=== PATIENT | male | born 1940 | race Caucasian/White ===

== ENCOUNTER 2020-02-02 07:27 | Emergency (ER) | payer MEDICARE ==
[~2020-02-02] VITALS: Ht 185.4 cm; Wt 68.4 kg
[~2020-02-02 07:27] MED LIST: ACET325T9 PO; ALLO100T PO; AMIN30LI2 PO; ATOR20TA58 PO; DEXT4TAB PO; DOCU100C28 PO; INSU100V5 IJ; IPRA0.2S5 IH; METO25TA4 PO; MICO30CR11 TP; PANT40TA6 PO; QUET25TA5 PO; RIVA10TA PO; SERT25TA PO; SERT50TA PO
[2020-02-02 07:28] VITALS: BP 132/114
--- NOTE | 2020-02-02 08:03 | PHYS DOC ---
Past History Past Medical History: CAD, CHF, Dementia, Depression, GERD, Hypertension, Schizophrenia Past Surgical History: Other Alcohol Use: None Drug Use: None Adult General Chief Complaint Chief Complaint: BLOOD IN URINE [facility] Patient is a 79-year-old male who presents to the emergency room with painless hematuria that he has had for "a while". Patient states he is not sure why the rehab facility sent him here. He states that this has been an ongoing issue for him. He has not followed up with anybody. Does not have any pain. He does not have any difficulty urinating. He denies any fevers. He does not have any urinary frequency urgency. Review of Systems Review of Systems Complete ROS is negative unless otherwise documented in [facility] Allergies Allergies Allergies Coded Allergies Type Severity Reaction Last Updated Verified No Known Drug Allergies 01/26/14 No Physical Exam Physical Exam General: Awake, alert, NAD. Well Nourished, well hydrated. Cooperative HEENT: Atraumatic, EOMI, PERRL, airway patent, moist oral mucosa Neck: Supple, trachea midline Respiratory: CTA bilaterally, normal effort, no wheezing/crackles CV: RRR, no murmur, cap refill <2 GI: Soft, nondistended, nontender, no masses MSK: No obvious deformities Skin: Warm, dry, intact Neuro: A&O x3, speech NL, sensory and motor grossly intact, no focal deficits Psych: Normal affect, normal mood, not suicidal or homicidal Current Patient Data Vital Signs Vital Signs Date Time Temp Pulse Resp B/P (MAP) Pulse Ox O2 Delivery O2 Flow Rate FiO2 02/02/20 07:28 97.8 59 16 132/114 (120) 97 Room Air EKG EKG [] Radiology/Procedures Radiology/Procedures [] Heart Score Risk Factors: Risk Factors: DM, Current or recent (<one month) smoker, HTN, HLP, family history of CAD, obesity. Risk Scores: Risk Factors: DM, Current or recent (<one month) smoker, HTN, HLP, family history of CAD, obesity. Course & Med Decision Making Course & Med Decision Making Pertinent Labs and Imaging studies reviewed. (See chart for details) Patient is a 79-year-old male who presents to the emergency room with painless hematuria. Patient generally appears well. This appears to be a chronic problem. UA and basic labs are done to rule out obvious causes of hematuria. Lab work is normal. Patient does not have any clotting that would suggest obstruction. He has a long history of this. No need for emergent evaluation at this time. Patient's test results and vitals while in the ED were fully reviewed and discussed with the patient. Patient is stable and at this time does not need admission to the hospital. We have discussed strict return precautions and the importance of following up with their Primary Care Physician. Patient stated understanding and was given an opportunity to ask any questions. Patient is in agreement with plan. Dragon Disclaimer Dragon Disclaimer This electronic medical record was generated, in whole or in part, using a voice recognition dictation system. Departure Departure: Impression: Primary Impression: Hematuria Disposition: 01 DC HOME SELF CARE/HOMELESS Condition: STABLE Referrals: HERI THURMAN MD (PCP) Patient Instructions: Hematuria, Adult JACOB SANCHEZ MD Feb 02, 2020 08:03
[2020-02-02 08:14] LABS: BASO % 1 % (0-3); EOS # 0.1 x10^3/uL (0.0-0.7); EOS % 4 % (0-3); HEMATOCRIT 39.8 % (39.0-53.0); LYMPH # 1.2 x10^3/uL (1.0-4.8); LYMPH % 33 % (24-48); MEAN CORPUSCULAR HEMOGLOBIN 32 pg (25-35); MEAN CORPUSCULAR HGB CONC 33 g/dL (31-37); MEAN CORPUSCULAR VOLUME 99 fL (79-100); MONO # 0.3 x10^3/uL (0.0-1.1); MONO % 8 % (0-9); NEUT % 55 % (31-73); PLATELET COUNT 131 x10^3/uL (140-400); RED BLOOD COUNT 4.03 x10^6/uL (4.30-5.70); RED CELL DISTRIBUTION WIDTH 14.3 % (11.5-14.5); WHITE BLOOD COUNT 3.7 x10^3/uL (4.0-11.0)
[2020-02-02 08:23] LABS: CREATININE 1.3 mg/dL (0.7-1.3); GFR 53.4; POTASSIUM 3.5 mmol/L (3.5-5.1)
[2020-02-02 09:29] LABS: CLARITY,URINE TURBID; COLOR,URINE BROWN
[2020-02-02 09:30] LABS: BACTERIA,URINE 0 /HPF (0-FEW); RBC,URINE >40 /HPF (0-2); SQUAMOUS EPITHELIAL CELL,UR FEW /LPF; YEAST,URINE PRESENT /HPF
[2020-02-02] MEDS ORDERED: FLUCONAZOLE 100 MG TABLET. PO ONE (10:00)
== END 2020-02-02 11:16 | disposition home or self-care (01) ==
LOC: ER 07:27
DX: R31.9 Hematuria, unspecified (principal); I25.10 Atherosclerotic heart disease of native coronary artery without angina pectoris; I11.0 Hypertensive heart disease with heart failure; I50.9 Heart failure, unspecified; F03.90 Unspecified dementia, unspecified severity, without behavioral disturbance, psychotic disturbance, mood disturbance, and anxiety; F32.9 Major depressive disorder, single episode, unspecified; K21.9 Gastro-esophageal reflux disease without esophagitis; F20.9 Schizophrenia, unspecified
CPT/HCPCS: 36415; 80048; 81001; 85025; 99283

== ENCOUNTER 2020-02-10 18:07 | Inpatient (IN) | payer MEDICARE ==
[~2020-02-10] VITALS: Ht 185.4 cm; Wt 69.0 kg
--- NOTE | 2020-02-10 18:13 | PHYS DOC ---
Past History Past Medical History: Arthritis, CAD, CHF, Dementia, Depression, GERD, Hypertension, Schizophrenia Past Surgical History: Other Alcohol Use: None Drug Use: None General Adult EDM: Chief Complaint: WEAKNESS/GENERALIZED HPI: HPI: ".. I don't know... just tired...".."Short of breath..." .."Cough.." Patient is a 79 year old male who presents with above hx and complaints of cough, dyspnea, weakness, fever, and Hx. COVID +exposure. Pt. followed with Dr. Ontiveros primary at [facility]. Pt. has seen Dr. Thurman in past. The pt. a resident of [facility]. since 02-23-2013. Patient past history of schizophrenia, diastolic congestive heart failure, osteoarthritis, chronic pain, major depression, deconditioning, arteriosclerotic disease, angina, GERD, hyperlipidemia, hemorrhoids, abdomen hernia without obstruction, dementia, behavioral disturbance, No recent travel. History of contact with other patients that are Covid positive at the retirement. Patient is DNR. Review of Systems: Review of Systems: Patient very poor historian Constitutional: History of fever or chills Eyes: Denies change in visual acuity HENT: Denies nasal congestion or sore throat Respiratory: Hx. shortness of breath Cardiovascular: Denies chest pain or edema GI: Denies abdominal pain, nausea, vomiting, bloody stools or diarrhea : Denies dysuria Musculoskeletal: Denies back pain or joint pain Integument: Denies rash Neurologic: Denies headache, focal weakness or sensory changes Endocrine: Denies polyuria or polydipsia Lymphatic: Denies swollen glands Psychiatric: Hx depression or anxiety Family History: Family History: Not currently available Current Medications: Current Meds: See nursing for home meds Allergies: Allergies: Allergies Coded Allergies Type Severity Reaction Last Updated Verified No Known Drug Allergies 01/26/14 No Physical Exam: PE: Constitutional: Moderate respiratory distress, chronically ill and appearance. [] HENT: Normocephalic, atraumatic, bilateral external ears normal, oropharynx moist, no oral exudates, nose swollen turbinates Eyes: PERRLA, EOMI, conjunctiva normal, no discharge. [] Neck: Normal range of motion, no tenderness, supple, no stridor. [] Cardiovascular: Tachycardia heart rate regular rhythm, PMI to the left Lungs & Thorax: Bilateral breath sounds equal apex with scattered wheezes, basilar rhonchi and crackles on auscultation [] Abdomen: Bowel sounds normal, soft, no tenderness, no masses, no pulsatile masses. Mild distention Skin: Warm, dry, no erythema, no rash. Poor turgor Back: No tenderness, no CVA tenderness. [] Extremities: No tenderness, no cyanosis, no clubbing, moves extremities on reque st, no edema. Arthritic changes. No cording noted Neurologic: Alert to name, moves all extremities on request has distal sensory, Psychologic: Affect anxious, judgement impaired, mood depressed. EKG: EKG: My interpretation EKG shows a sinus tachycardia at 117 bpm. No findings acute STEMI or contralateral changes. Some baseline artifact from tremor [] Radiology/Procedures: Radiology/Procedures: [][address] [address] IMAGING REPORT Signed PATIENT: DANIE KUMAR LACCOUNT: [id number] : 1940 LOCATION: ER AGE: 79 SEX: M EXAM STATUS: REG ER ORD. PHYSICIAN: GUILLE ANDRADE MD REASON: dyspnea, cough, fever, + COVID PROCEDURE: CHEST AP ONLY AP chest. HISTORY: Dyspnea, cough, fever, Covid-19 positive AP view was taken of the chest. Left lung is clear. Heart is normal in size. The aorta is tortuous. There are right lower lobe infiltrates. IMPRESSION: 1. Right lower lobe infiltrates. Electronically signed by: Emeka Hawley MD (02/10/2020 6:28 PM) [facility] DICTATED AND SIGNED BY: EMEKA HAWLEY MD DATE: 02/10/20 182 CC: HERI THURMAN MD; GUILLE ANDRADE MD ~MTH0 0 Heart Score: HEART Score for Chest Pain: HEART Score for Chest Pain Response (Comments) Value History Slighlty/Non-Suspicious 0 ECG Nonspecific Repolarizatio 1 Age > 65 2 Risk Factors 1 or 2 Risk Factors 1 Troponin < Normal Limit 0 Total 4 Risk Factors: Risk Factors: DM, Current or recent (<one month) smoker, HTN, HLP, family history of CAD, obesity. Risk Scores: Score 0 - 3: 2.5% MACE over next 6 weeks - Discharge Home Score 4 - 6: 20.3% MACE over next 6 weeks - Admit for Clinical Observation Score 7 - 10: 72.7% MACE over next 6 weeks - Early Invasive Strategies Course & Med Decision Making: Course & Med Decision Making Pertinent Labs and Imaging studies reviewed. (See chart for details) No answer at Dr. Thurman. Discussed presentation, testing and tx. plan with Dr. Ramos, advised admit to med floor. Continue DNR status, continue Zithromax and Rocephin. Impression; 1. Pneumonia- atypical Rt. Lower 2. Hx. COVID + 02/02/2020 3. Renal insufficiency BUN 33/1.3 Creat 4. Thrombocytopenia 89 5. Elevated CRP- 107.1 6. Hx UTI and Hematuria 7. Elevated PTT ( on Eliquis 5mg bid) 8. Hx. Schizophrenia 9. DNR- Comfort care [] Santa Disclaimer: Santa Disclaimer: This electronic medical record was generated, in whole or in part, using a voice recognition dictation system. Departure Departure: Referrals: HERI THURMAN MD (PCP) Santa Disclaimer This chart was dictated in whole or in part using Voice Recognition software in a busy, high-work load, and often noisy Emergency Department environment. It may contain unintended and wholly unrecognized errors or omissions. GUILLE ANDRADE MD Feb 10, 2020 18:13
[2020-02-10] MEDS ORDERED: IV RINGERS SOLUTION,LACTATED 1,000 ML IV SCH (18:30)
[2020-02-10] MEDS ORDERED: ALBUTEROL SULFATE 8GM INHALER. INH ONE (18:30)
--- NOTE | 2020-02-10 18:30 | RAD ---
AP chest. HISTORY: Dyspnea, cough, fever, Covid-19 positive AP view was taken of the chest. Left lung is clear. Heart is normal in size. The aorta is tortuous. T here are right lower lobe infiltrates. IMPRESSION: 1. Right lower lobe infiltrates. Electronically signed by: Emeka Hawley MD (02/10/2020 6:28 PM) [facility]
[2020-02-10 19:31] LABS: BASO % 0 % (0-3); EOS % 0 % (0-3); HEMATOCRIT 41.9 % (39.0-53.0); LYMPH # 0.3 x10^3/uL (1.0-4.8); LYMPH % 4 % (24-48); MEAN CORPUSCULAR HEMOGLOBIN 32 pg (25-35); MEAN CORPUSCULAR HGB CONC 34 g/dL (31-37); MEAN CORPUSCULAR VOLUME 96 fL (79-100); MONO # 0.6 x10^3/uL (0.0-1.1); MONO % 6 % (0-9); NEUT # 8.6 x10^3uL (1.8-7.7); NEUT % 90 % (31-73); PLATELET COUNT 89 x10^3/uL (140-400); RED BLOOD COUNT 4.34 x10^6/uL (4.30-5.70); RED CELL DISTRIBUTION WIDTH 14.3 % (11.5-14.5); WHITE BLOOD COUNT 9.5 x10^3/uL (4.0-11.0)
[2020-02-10 19:41] LABS: CALCIUM 9.2 mg/dL (8.5-10.1); CREATININE 1.3 mg/dL (0.7-1.3); GFR 53.4; POTASSIUM 4.1 mmol/L (3.5-5.1)
[2020-02-10 19:54] LABS: ALBUMIN 3.5 g/dL (3.4-5.0); C REACTIVE PROTEIN 107.1 mg/L (0-3.3); DIRECT BILIRUBIN 0.4 mg/dL (0.0-0.2); MAGNESIUM 1.8 mg/dL (1.8-2.4); TOTAL BILIRUBIN 0.7 mg/dL (0.2-1.0); TOTAL PROTEIN 7.2 g/dL (6.4-8.2)
--- NOTE | 2020-02-10 21:40 | EKG ---
[address] [address] Test Date: 2020-02-10 Test Time: 18:54:39 Pat Name: DANIE KUMAR Department: Room: Gender: M Library Historian: : 1940 Requested By: GUILLE ANDRADE Order Number: [id number] Reading MD: Measurements Intervals [place] Rate: 117 P: 231 NC: 134 QRS: 41 QRSD: 78 T: 58 QT: 286 QTc: 403 Interpretive Statements SINUS TACHYCARDIA OTHERWISE NORMAL ECG RI6.02 No previous ECG available for comparison
[2020-02-10] MEDS ORDERED: AZITHROMYCIN 250 MG TABLET. PO ONE (22:30)
[2020-02-10] MEDS ORDERED: cefTRIAXone SODIUM 1 GM VIAL ONE (23:22)
[2020-02-10] MEDS ORDERED: IV NORMAL SALINE 50ML 50 ML ONE (23:22)
[2020-02-10] MEDS ORDERED: ACETAMINOPHEN 325 MG TABLET PO PRN (23:30)
[2020-02-10] MEDS ORDERED: ONDANSETRON PF 4 MG/2 ML VIAL. IVP PRN (23:30)
[2020-02-11 01:08] LABS: INFLUENZA A PATIENT NEGATIVE (NEGATIVE); INFLUENZA B PATIENT NEGATIVE (NEGATIVE)
[2020-02-11 02:12] VITALS: BP 112/63
--- NOTE | 2020-02-11 03:49 | NUR ---
Pt admitted to 125 via EMS accompanied by Nursing Land Sales Agent. Pt was assisted from gurney to bed w/ help of staff. Pt was orientated to self only. VS obtained. Pt denied any pain during assessment. Pt was calm and cooperative but confused. Bed alarm set. Will continue to monitor.
[2020-02-11 06:06] VITALS: BP 93/63
[2020-02-11 06:41] LABS: BASO % 0 % (0-3); EOS % 0 % (0-3); HEMOGLOBIN 12.1 g/dL (13.0-17.5); LYMPH # 0.5 x10^3/uL (1.0-4.8); LYMPH % 4 % (24-48); MEAN CORPUSCULAR HEMOGLOBIN 32 pg (25-35); MEAN CORPUSCULAR HGB CONC 33 g/dL (31-37); MEAN CORPUSCULAR VOLUME 97 fL (79-100); MONO # 0.8 x10^3/uL (0.0-1.1); MONO % 6 % (0-9); NEUT # 10.8 x10^3uL (1.8-7.7); NEUT % 89 % (31-73); PLATELET COUNT 79 x10^3/uL (140-400); RED BLOOD COUNT 3.83 x10^6/uL (4.30-5.70); RED CELL DISTRIBUTION WIDTH 14.2 % (11.5-14.5); WHITE BLOOD COUNT 12.1 x10^3/uL (4.0-11.0)
[2020-02-11 06:54] LABS: CALCIUM 8.6 mg/dL (8.5-10.1); CREATININE 1.2 mg/dL (0.7-1.3); GFR 58.6; POTASSIUM 3.6 mmol/L (3.5-5.1)
[2020-02-11] MEDS ORDERED: DEXTROSE 4 GM PO PRN (08:00)
[2020-02-11] MEDS ORDERED: [UNRECOGNIZED DRUG - OTHER] PO PRN (08:00)
[2020-02-11] MEDS ORDERED: IPRATROPIUM BROMIDE 0.5 MG/2.5 ML NEBU. IH PRN (08:00)
[2020-02-11] MEDS ORDERED: SERTRALINE 25 MG TABLET. PO SCH (09:00)
[2020-02-11] MEDS ORDERED: NON FORMULARY ITEM (Amino Acids/Protein Hydrolys (Pro-Stat Liquid) 30 ML) PO SCH (09:00)
[2020-02-11] MEDS: MICONAZOLE NITRATE 2% TOPICAL CREAM 28GM TUBE. TP SCH ×2 (09:00→21:00)
[2020-02-11] MEDS ORDERED: ALBUTEROL SULFATE 8GM INHALER. INH SCH (09:00)
[2020-02-11] MEDS: AZITHROMYCIN 250 MG TABLET. PO SCH (09:05)
[2020-02-11] MEDS: METOPROLOL TART IMMED RELEASE 25 MG TABLET. PO SCH ×2 (09:05→20:38)
[2020-02-11] MEDS: ALLOPURINOL 100 MG TABLET. PO SCH ×2 (09:05→20:40)
[2020-02-11] MEDS: DOCUSATE SODIUM 100 MG CAPSULE PO SCH ×2 (09:05→20:40)
[2020-02-11 11:10] VITALS: BP 96/60
[2020-02-11] MEDS ORDERED: IPRATRPIUM/ALBUTEROL 0.5/2.5MG 3 ML NEBU. IH SCH (12:00)
[2020-02-11] MEDS: SERTRALINE 50 MG TABLET. PO SCH (13:54)
[2020-02-11] MEDS: ACETAMINOPHEN 325 MG TABLET PO PRN (13:54)
[2020-02-11] MEDS: PANTOPRAZOLE 40 MG TABLET. PO SCH (13:54)
[2020-02-11] MEDS: DEXAMETHASONE 4 MG TABLET PO SCH (13:54)
[2020-02-11] MEDS: IPRATROPIUM/ALBUTEROL 20/100mcg/INH INHALER. INH SCH ×3 (13:55→20:00)
[2020-02-11] MEDS ORDERED: VANCOMYCIN 1.75 GM in IV NORMAL SALINE 500ML 500 ML IV ONE (14:00)
[2020-02-11] MEDS: IV 1/2 NORMAL SALINE 1,000 ML IV SCH (14:10)
[2020-02-11 14:32] LABS: % BANDS 19 % (0-9); % LYMPHS 11 % (24-48); % MONOS 4 % (0-10); % MYELOS 1 % (0-0); % SEGS 65 % (35-66)
[2020-02-11 14:33] LABS: PLT ESTIMATE DECREASED (ADEQUATE); TOXIC GRANULATION SLIGHT
[2020-02-11 15:00] VITALS: BP 101/65
--- NOTE | 2020-02-11 16:56 | NUR ---
Pharmacy Vancomycin Dosing Note S:Consulted to monitor and dose vancomycin started . O:DANIE KUMAR is a 79 year old M with Pneumonia, bacteremia Height: 6 feet, 1 inches Weight: 66.2 kg [place] Body Weight: 79.90 Adjusted Body Weight: 74.34 Dosing Weight: Actual Other Antibiotics: ZOSYN 4.5GRAM Q6HRS LABS: Last BUN: 31 Last Creatinine: 1.2 Creatinine Clearance: Last WBC: 12.1 Last Procalcitonin: Tmax (past 24 hours): Microbiology: I/O: Drug Levels: Last level: on at Last dose given 02/11/20 at 1400 Vancomycin Dosing: Loading Dose: 1750 mg x1 Dosing Weight: Actual Target Trough: 15-20 A: Based on: P: 1. Begin Vancomycin 1000 mg IV q24h 2. Follow up Trough level on 02/13/20 at 1330 3. Pharmacy will continue to monitor, follow and adjust therapy as needed. SWETHA TURCIOS, [facility], 02/11/20 [id number]
[2020-02-11] MEDS ORDERED: VANCOMYCIN PER PHARMACY MC PRN (17:00)
[2020-02-11] MEDS ORDERED: DEXTROSE 50% 25 GM / 50ML DISP.SYRIN. IV PRN (17:15)
[2020-02-11] MEDS: PIPERACILLIN/TAZOBACTAM 4.5 GM in IV NORMAL SALINE 50ML 50 ML IV SCH (17:29)
--- NOTE | 2020-02-11 20:08 | HP ---
ADMIT DATE: 02/10/2020 HISTORY OF PRESENT ILLNESS: A 79-year-old patient came in through the Emergency Room with complaints of severe cough, weakness, dizziness, lightheadedness. The patient is a resident at a nursing facility in [facility] since 2013. The patient came in; he was found to have bacteremia, gram-negative, and placed on status of antibiotics that are appropriate for this to cover since he is coming from a nursing facility. COVID-19 was pending, although COVID-19 was noted at that nursing facility. The patient has had a history of a stroke and cannot really give much of a history. PAST MEDICAL HISTORY: Schizophrenia, diastolic congestive heart failure, osteoarthritis, chronic pain, major depression, deconditioning, atherosclerosis disease and angina, GERD, hyperlipidemia, hemorrhoids, ectopy, abdominal hernia with obstruction, dementia, behavioral problems, anxiety, previous history of pneumonia. FAMILY HISTORY: Positive for heart disease. ALLERGIES: No known allergies. SOCIAL HISTORY: The patient has about 40-50 pack year history of smoking, although he has not smoked in some time. He is a DNR. HOME MEDICATIONS: As listed in the reconciliation area includes: Xarelto 20 mg a day, ipratropium bromide solution for shortness of breath, metoprolol, sertraline 75, Seroquel 12.5 at bedtime, dextrose 4 mg, allopurinol 100 mg b.i.d., miconazole nitrate. REVIEW OF SYSTEMS: The patient really not able to give much of a history; seems to deny really any problems going on there. PHYSICAL EXAMINATION: GENERAL: This is a white male, looking quite debilitated with marked weakness and asymmetry to the face. VITAL SIGNS: Blood pressure 147/71, although that has dropped down to 95/58; respiratory rate 28; pulse 120; temperature 100.5. HEENT: The patient's head was traumatic in the sense that he has this asymmetry to his face, appears to have been previous CVA with a left-sided weakness. LUNGS: Otherwise, lungs show diminished breath sounds, coarse breath sounds in the bases. CARDIOVASCULAR: Regular sinus rhythm. ABDOMEN: Soft, diffuse tenderness, but no rebound or guarding. Positive bowel sounds. EXTREMITIES: No clubbing, cyanosis, or edema. NEUROLOGIC: The patient is alert. He utters just a few words, not able to really communicate very well. LABORATORY DATA: The patient's white count 12,000; hemoglobin 12 and 37. He has 19 bands. Sodium and potassium 144 and 3.6, BUN and creatinine 31 and 1.2. IMPRESSION: Gram-negative sepsis, pneumonia, history of multiple medical issues such as schizophrenia, history of possible stroke, dementia, hypotension. PLAN: The patient will be placed on Zosyn along with vancomycin, azithromycin. COVID-19 is still pending. We will minimize his blood pressure medications as it is vacillating. The patient is a DNR and continue to monitor this gentleman as closely as possible. HERI THURMAN MD DR: RADHA/elis JOB#: [id number] / [id number]
[2020-02-11 20:14] VITALS: BP 89/57
[2020-02-11] MEDS: APIXABAN 5 MG TABLET. PO SCH (20:40)
[2020-02-11] MEDS: LACTOBACILLUS RHAMNOSUS GG 1 CAPSULE. PO SCH (20:40)
[2020-02-11] MEDS: ATORVASTATIN CALCIUM 20 MG TABLET PO SCH (20:40)
[2020-02-11] MEDS: INSULIN LISPRO 300 UNITS/3 ML VIAL. SQ SCH (20:41)
[2020-02-11] MEDS ORDERED: QUEtiapine 25 MG TABLET. PO SCH (21:00)
[2020-02-11 23:34] VITALS: BP 89/67
[2020-02-12] MEDS: PIPERACILLIN/TAZOBACTAM 4.5 GM in IV NORMAL SALINE 50ML 50 ML IV SCH ×5 (00:02→22:20)
[2020-02-12] MEDS: IV 1/2 NORMAL SALINE 1,000 ML IV SCH ×2 (05:30→16:25)
[2020-02-12 06:19] VITALS: BP 93/55
[2020-02-12] MEDS: INSULIN LISPRO 300 UNITS/3 ML VIAL. SQ SCH ×4 (08:00→22:20)
[2020-02-12] MEDS: IPRATROPIUM/ALBUTEROL 20/100mcg/INH INHALER. INH SCH ×4 (08:00→20:00)
[2020-02-12] MEDS: SERTRALINE 50 MG TABLET. PO SCH (08:22)
[2020-02-12] MEDS: LACTOBACILLUS RHAMNOSUS GG 1 CAPSULE. PO SCH ×2 (08:22→21:08)
[2020-02-12] MEDS: METOPROLOL TART IMMED RELEASE 25 MG TABLET. PO SCH (08:23)
[2020-02-12] MEDS: ALLOPURINOL 100 MG TABLET. PO SCH ×2 (08:23→21:08)
[2020-02-12] MEDS: AZITHROMYCIN 250 MG TABLET. PO SCH (08:23)
[2020-02-12] MEDS: PANTOPRAZOLE 40 MG TABLET. PO SCH (08:23)
[2020-02-12] MEDS: DEXAMETHASONE 4 MG TABLET PO SCH (08:23)
[2020-02-12] MEDS: DOCUSATE SODIUM 100 MG CAPSULE PO SCH ×2 (08:23→21:09)
[2020-02-12] MEDS: APIXABAN 5 MG TABLET. PO SCH ×2 (08:23→21:09)
[2020-02-12] MEDS: MICONAZOLE NITRATE 2% TOPICAL CREAM 28GM TUBE. TP SCH ×2 (08:23→21:00)
[2020-02-12 10:41] VITALS: BP 109/86
[2020-02-12] MEDS ORDERED: VANCOMYCIN 1 GM in IV NORMAL SALINE 250ML 250 ML IV SCH (14:00)
[2020-02-12 15:48] VITALS: BP 93/55
[2020-02-12 19:30] VITALS: BP 86/54
[2020-02-12] MEDS ORDERED: IV NORMAL SALINE 500ML 500 ML IV ONE (19:45)
[2020-02-12] MEDS: ATORVASTATIN CALCIUM 20 MG TABLET PO SCH (21:08)
[2020-02-12 21:22] VITALS: BP 89/53
--- NOTE | 2020-02-12 21:30 | NUR ---
Nursing note: BP 86/54 at beginning of shift vitals check. Spoke with MD, who ordered a 500mL bolus of NS and d/c metoprolol. After bolus, BP 89/53, MD aware, no new orders.
--- NOTE | 2020-02-13 04:27 | NUR ---
Nursing note: Pt rested comfortably in bed through shift, no c/o pain. Meds given per orders.
[2020-02-13] MEDS: PIPERACILLIN/TAZOBACTAM 4.5 GM in IV NORMAL SALINE 50ML 50 ML IV SCH ×2 (05:47→12:11)
[2020-02-13 06:06] VITALS: BP 101/58
[2020-02-13] MEDS: INSULIN LISPRO 300 UNITS/3 ML VIAL. SQ SCH ×4 (08:00→21:00)
[2020-02-13] MEDS: IPRATROPIUM/ALBUTEROL 20/100mcg/INH INHALER. INH SCH ×4 (08:00→20:00)
[2020-02-13] MEDS: SERTRALINE 50 MG TABLET. PO SCH (08:17)
[2020-02-13] MEDS: LACTOBACILLUS RHAMNOSUS GG 1 CAPSULE. PO SCH ×2 (08:17→21:17)
[2020-02-13] MEDS: ALLOPURINOL 100 MG TABLET. PO SCH ×2 (08:17→21:17)
[2020-02-13] MEDS: DOCUSATE SODIUM 100 MG CAPSULE PO SCH ×2 (08:17→21:17)
[2020-02-13] MEDS: PANTOPRAZOLE 40 MG TABLET. PO SCH (08:17)
[2020-02-13] MEDS: DEXAMETHASONE 4 MG TABLET PO SCH ×3 (08:17→21:17)
[2020-02-13] MEDS: APIXABAN 5 MG TABLET. PO SCH ×2 (08:17→21:17)
[2020-02-13] MEDS: AZITHROMYCIN 250 MG TABLET. PO SCH (08:17)
[2020-02-13] MEDS: MICONAZOLE NITRATE 2% TOPICAL CREAM 28GM TUBE. TP SCH ×2 (08:18→21:00)
--- NOTE | 2020-02-13 08:35 | PN ---
DATE: SUBJECTIVE: Positive COVID-19, sepsis, pneumonia. The patient is still very weak. The patient is not giving much in the way of cooperation, refusing a lot of the medications that the nurses are trying to give him and that have been prescribed obviously. The patient has been encouraged to eat, is not eating very well. The patient otherwise is continuing to be monitored carefully. The patient is a DNR, but we will be as aggressive as possible. Blood pressure has been vacillating, 93/55 (NC), respiratory rate 18, pulse anywhere in 40s to 60s. The patient is noted somewhat alert, but very lethargic. We will go ahead and decrease his metoprolol. OBJECTIVE: LUNGS: Diminished. CARDIOVASCULAR: Bradycardic. CVR exam is stable. ABDOMEN: Soft, nontender. EXTREMITIES: No clubbing, cyanosis or edema. NEUROLOGIC: Alert, but confused. PLAN: We will continue to monitor him carefully on this complication of multiple medical issues. IMPRESSION: Sepsis, pneumonia, probably [facility] acquired, possible pseudomonas positive with gram-negative organisms found in his blood. Final report on that is still pending. E. coli has been found in the blood and probably as well as in the urine. The antibiotics that he is on should cover this and we will continue to monitor also bradycardia, urinary tract infection, septicemia, as indicated earlier sepsis with pneumonia and bacteremia. HERI THURMAN MD DR: RADHA/elis JOB#: [id number] / [id number]
[2020-02-13] MEDS ORDERED: METOPROLOL TART IMMED RELEASE 25 MG TABLET. PO SCH (09:00)
[2020-02-13 10:40] VITALS: BP 89/50
[2020-02-13] MEDS: IV 1/2 NORMAL SALINE 1,000 ML IV SCH ×2 (12:11→19:05)
[2020-02-13 15:15] VITALS: BP 93/54
[2020-02-13 19:30] VITALS: BP 93/56
[2020-02-13] MEDS: ATORVASTATIN CALCIUM 20 MG TABLET PO SCH (21:17)
--- NOTE | 2020-02-13 22:12 | PN ---
DATE: SUBJECTIVE: A 79-year-old male in with COVID-19 pneumonia from the [facility]. The patient is very lethargic and he does not talk very much, has to be forced to eat. He does like some liquid diet that the nurses are supplying to him. Otherwise, he needs to be coaxed along. He does look a little bit better today, although he denies everything and is very depressed individual with his history of being in the nursing facility and the like. Otherwise, he seems to be breathing a little bit better. His blood pressure is on the low side 93/54, respiratory rate 20, pulse 53, afebrile. The patient other than that seems to be tolerating that well. Reviewing his medications, it does not appear to be anything that should in of itself be suppressing his heart rate and so it is somewhat of a mystery. We are giving him IV fluids on that matter there. The patient's TSH was normal at 1.5. C-reactive protein was 107, lipase was elevated interesting enough to 558, although he does not complain of any abdominal pain or nausea or vomiting. The patient will continue to be monitored carefully there. The patient course did have positive blood cultures to E. coli as well as urine E. coli and sensitive to the antibiotics that he is on and he was continued on his Rocephin 2 grams IV daily because of the bacteremia and also on his azithromycin as well, so we will continue to monitor him accordingly and make further evaluation on this multiplicity of medical problems including COVID-19 pneumonia, bacteremia, sepsis, of course with Escherichia coli and his bloodstream as well as E. coli urinary tract infection, possible pancreatitis, anemia of chronic disease, general depression, hyperglycemia. We will continue to push nutritional supplement to him. DIAGNOSES: Hypotension and bradycardia. HERI THURMAN MD DR: RADHA/elis JOB#: [id number] / [id number]
[2020-02-14 05:45] VITALS: BP 118/70
[2020-02-14 06:45] LABS: BASO % 0 % (0-3); EOS % 0 % (0-3); HEMATOCRIT 34.2 % (39.0-53.0); HEMOGLOBIN 11.3 g/dL (13.0-17.5); LYMPH # 0.3 x10^3/uL (1.0-4.8); LYMPH % 5 % (24-48); MEAN CORPUSCULAR HEMOGLOBIN 32 pg (25-35); MEAN CORPUSCULAR HGB CONC 33 g/dL (31-37); MEAN CORPUSCULAR VOLUME 96 fL (79-100); MONO # 0.2 x10^3/uL (0.0-1.1); MONO % 3 % (0-9); NEUT # 4.8 x10^3uL (1.8-7.7); NEUT % 92 % (31-73); PLATELET COUNT 88 x10^3/uL (140-400); RED BLOOD COUNT 3.55 x10^6/uL (4.30-5.70); RED CELL DISTRIBUTION WIDTH 14.1 % (11.5-14.5); WHITE BLOOD COUNT 5.3 x10^3/uL (4.0-11.0)
[2020-02-14 06:54] LABS: CALCIUM 8.3 mg/dL (8.5-10.1); CREATININE 1.1 mg/dL (0.7-1.3); GFR 64.7; POTASSIUM 3.6 mmol/L (3.5-5.1)
[2020-02-14] MEDS: INSULIN LISPRO 300 UNITS/3 ML VIAL. SQ SCH ×4 (08:00→21:00)
[2020-02-14] MEDS: IPRATROPIUM/ALBUTEROL 20/100mcg/INH INHALER. INH SCH ×4 (08:00→20:00)
[2020-02-14] MEDS: IV 1/2 NORMAL SALINE 1,000 ML IV SCH ×2 (08:25→22:24)
[2020-02-14] MEDS: PANTOPRAZOLE 40 MG TABLET. PO SCH (08:33)
[2020-02-14] MEDS: ALLOPURINOL 100 MG TABLET. PO SCH ×2 (08:34→20:32)
[2020-02-14] MEDS: LACTOBACILLUS RHAMNOSUS GG 1 CAPSULE. PO SCH ×2 (08:34→20:32)
[2020-02-14] MEDS: APIXABAN 5 MG TABLET. PO SCH ×2 (08:34→20:32)
[2020-02-14] MEDS: SERTRALINE 50 MG TABLET. PO SCH (08:34)
[2020-02-14] MEDS: DOCUSATE SODIUM 100 MG CAPSULE PO SCH ×2 (08:34→20:32)
[2020-02-14] MEDS: AZITHROMYCIN 250 MG TABLET. PO SCH (08:34)
[2020-02-14] MEDS: DEXAMETHASONE 4 MG TABLET PO SCH ×3 (08:34→20:32)
[2020-02-14] MEDS: MICONAZOLE NITRATE 2% TOPICAL CREAM 28GM TUBE. TP SCH ×2 (09:00→20:33)
[2020-02-14 10:33] VITALS: BP 92/65
[2020-02-14 15:32] VITALS: BP 96/49
[2020-02-14 19:32] VITALS: BP 91/54
[2020-02-14] MEDS: ATORVASTATIN CALCIUM 20 MG TABLET PO SCH (20:32)
--- NOTE | 2020-02-15 00:21 | PN ---
DATE: 02/14/2020 SUBJECTIVE: He is in with COVID-19, sepsis, pneumonia, E. coli bacteremia as noted. The patient is still a little bit stronger today. Blood pressure 96/49, respiratory rate 20, pulse 54, afebrile. The patient is alert, no more so than usual, but not very much. Overall, he has very few spontaneous speech with his overall medical condition is somewhat deteriorated overall. He has a very decreased affect and probably we will start him on a strong antidepressant for this as he does look marginally and clinically depressed. OBJECTIVE: VITAL SIGNS: His blood pressure is noted 96/50, respiratory rate 20, pulse 50, afebrile, 96% on room air. LUNGS: Diminished, but basically clear. CARDIOVASCULAR: Regular sinus rhythm. ABDOMEN: Soft, nontender. EXTREMITIES: No clubbing, cyanosis, or edema. NEUROLOGIC: As noted above, very decreased mentation. IMPRESSION: Therefore, sepsis, bacteremia, Escherichia coli urinary tract infection, Escherichia coli found in the blood, hypotension, history of schizophrenia and depression. HERI THURMAN MD DR: RADHA/elis JOB#: [id number] / [id number]
[2020-02-15 05:40] VITALS: BP 129/74
[2020-02-15] MEDS: INSULIN LISPRO 300 UNITS/3 ML VIAL. SQ SCH ×4 (08:00→21:00)
[2020-02-15] MEDS: IPRATROPIUM/ALBUTEROL 20/100mcg/INH INHALER. INH SCH ×4 (08:00→21:40)
[2020-02-15] MEDS: PANTOPRAZOLE 40 MG TABLET. PO SCH (08:35)
[2020-02-15] MEDS: DEXAMETHASONE 4 MG TABLET PO SCH ×3 (08:35→21:41)
[2020-02-15] MEDS: LACTOBACILLUS RHAMNOSUS GG 1 CAPSULE. PO SCH ×2 (08:35→21:40)
[2020-02-15] MEDS: ALLOPURINOL 100 MG TABLET. PO SCH ×2 (08:35→21:41)
[2020-02-15] MEDS: SERTRALINE 50 MG TABLET. PO SCH (08:35)
[2020-02-15] MEDS: DOCUSATE SODIUM 100 MG CAPSULE PO SCH ×2 (08:36→21:00)
[2020-02-15] MEDS: APIXABAN 5 MG TABLET. PO SCH ×2 (08:36→21:41)
[2020-02-15] MEDS: AZITHROMYCIN 250 MG TABLET. PO SCH (08:36)
[2020-02-15] MEDS: MICONAZOLE NITRATE 2% TOPICAL CREAM 28GM TUBE. TP SCH ×2 (08:37→21:00)
[2020-02-15] MEDS: ACETAMINOPHEN 325 MG TABLET PO PRN ×2 (08:48→13:41)
[2020-02-15 10:10] VITALS: BP 124/70
[2020-02-15] MEDS: IV 1/2 NORMAL SALINE 1,000 ML IV SCH (13:26)
--- NOTE | 2020-02-15 14:44 | NUR ---
PATIENT IS AWAKE IN A BED UPON ASSESSMENT, DENIED ANY PAIN, DOES NOT HAVE ANY OTHER CONCERNS WHEN WAS ASKED, STATED HE JUST WANT TO GO HOME HE IS FINE. PATIENT IS WARM TO TOUCH, TEMP CHECKED AND IS 100.8 AX , TYLENOL GIVEN ORDERED. PATIENT IS CALM AND QUIET MOST OF THE SHIFT, APPETITE IS LOW. PATIENT PREFERS TO HAVE CLEAR ENSURE DRINKS WITH MEALS.
[2020-02-15 14:47] VITALS: BP 90/55
[2020-02-15 19:35] VITALS: BP 90/47
[2020-02-15] MEDS: VENLAFAXINE XR 37.5 MG CAP.ER.24H. PO SCH (21:41)
[2020-02-15 23:26] VITALS: BP 99/56
[2020-02-16] MEDS: IV 1/2 NORMAL SALINE 1,000 ML IV SCH (03:39)
--- NOTE | 2020-02-16 06:00 | PN ---
DATE: SUBJECTIVE: A 79-year-old gentleman. He is in with sepsis, bacteremia, E. coli. The patient is still very lethargic. He is very depressed and although clinically he is on some antidepressants, the patient still has far way to go I think in that regard and probably will adjust on those. OBJECTIVE: VITAL SIGNS: His blood pressure has been vacillating, it is down to 90/55, respiratory rate 20, pulse 65, afebrile. Temperature has been as high as 101.3 (NC). He is on ceftriaxone 2 g; however, something else may have popped up as the patient has been spiking a temperature. The patient will be further evaluated on that. GENERAL: Otherwise, the patient is very lethargic, depressed affect. LUNGS: Diminished, primarily in the left lower quadrant, in left lower lobe that is. CARDIOVASCULAR: Regular sinus rhythm. ABDOMEN: Soft, diffuse tenderness. EXTREMITIES: No clubbing, cyanosis or edema. NEUROLOGIC: Intact. The patient continued to be monitored carefully, make further evaluation and may have to adjust his antibiotic therapy as indicated. IMPRESSION: Sepsis; COVID-19 pneumonia, fpc acquired; E. coli bacteremia; severe depression; bradycardia; hypotension; metabolic encephalopathy; lethargy; anemia of chronic disease; chronic pancreatitis. PLAN: As above. Continue to monitor the patient accordingly, make adjustments on his medication as indicated. HERI THURMAN MD DR: RADHA/elis JOB#: [id number] / [id number]
[2020-02-16 06:20] VITALS: BP 101/62
--- NOTE | 2020-02-16 06:25 | RAD ---
XR CHEST 1V 02/16/2020 5:42 AM INDICATION: Fever, cough and congestion COMPARISON: 02/10/2020 TECHNIQUE: Portable frontal view of the chest is provided. FINDINGS: The cardiomediastinal silhouette is similar in appearance. There is chronic elevation the right hemid iaphragm. There is increased perihilar interstitial airspace disease. There is ectasia of the thoracic aorta. No significant pleural effusions or pneumothorax. No suspicious osseous abnormality. IMPRESSION: Increased perihilar interstitial airspace disease as may be seen with interstitial pneumonitis versus interstitial edema. Electronically signed by: Donna Mendoza MD (02/16/2020 6:23 AM) [facility]
[2020-02-16] MEDS: INSULIN LISPRO 300 UNITS/3 ML VIAL. SQ SCH ×2 (07:53→12:00)
[2020-02-16] MEDS: IPRATROPIUM/ALBUTEROL 20/100mcg/INH INHALER. INH SCH ×2 (08:00→12:00)
[2020-02-16] MEDS: MICONAZOLE NITRATE 2% TOPICAL CREAM 28GM TUBE. TP SCH (09:00)
[2020-02-16] MEDS ORDERED: buPROPion XL 150 MG TAB.ER.24H PO SCH (09:00)
[2020-02-16 11:08] VITALS: BP 112/66
[2020-02-16] MEDS: PANTOPRAZOLE 40 MG TABLET. PO SCH (11:56)
[2020-02-16] MEDS: DEXAMETHASONE 4 MG TABLET PO SCH (11:56)
[2020-02-16] MEDS: LACTOBACILLUS RHAMNOSUS GG 1 CAPSULE. PO SCH (11:56)
[2020-02-16] MEDS: ALLOPURINOL 100 MG TABLET. PO SCH (11:56)
[2020-02-16] MEDS: AZITHROMYCIN 250 MG TABLET. PO SCH (11:57)
[2020-02-16] MEDS: APIXABAN 5 MG TABLET. PO SCH (11:57)
[2020-02-16] MEDS: DOCUSATE SODIUM 100 MG CAPSULE PO SCH (11:57)
[2020-02-16] MEDS: VENLAFAXINE XR 37.5 MG CAP.ER.24H. PO SCH (11:57)
--- NOTE | 2020-02-16 14:50 | NUR ---
PATIENT IS DISCHARGED HOME WITH SELF CARE. PATIENTS IV IS REMOVED AND PATIENT IS STABLE AT TIME OF DISCHARGE. PATIENT IS GIVEN ALL DISCHARGE AND FOLLOW UP INSTRUCTIONS. PATIENT IS WC OFF OF UNIT ACCOMPANIED BY STAFF.
== END 2020-02-16 14:50 | disposition home or self-care (01) | DRG 871 ==
LOC: ER 18:07 → 1 SOUTH 23:30
PROVIDERS: ADMIT Family Medicine; ATTEND Family Medicine
DX: A41.50 Gram-negative sepsis, unspecified (principal); U07.1 COVID-19; G93.41 Metabolic encephalopathy; J12.89 Other viral pneumonia; F03.91 Unspecified dementia, unspecified severity, with behavioral disturbance; I50.32 Chronic diastolic (congestive) heart failure; K86.1 Other chronic pancreatitis; N39.0 Urinary tract infection, site not specified; B96.20 Unspecified Escherichia coli [E. coli] as the cause of diseases classified elsewhere; D63.8 Anemia in other chronic diseases classified elsewhere; E78.5 Hyperlipidemia, unspecified; F20.9 Schizophrenia, unspecified; F32.9 Major depressive disorder, single episode, unspecified; I11.0 Hypertensive heart disease with heart failure; I25.10 Atherosclerotic heart disease of native coronary artery without angina pectoris; Z66 Do not resuscitate; Z86.73 Personal history of transient ischemic attack (TIA), and cerebral infarction without residual deficits; Z87.891 Personal history of nicotine dependence; F41.9 Anxiety disorder, unspecified; G89.29 Other chronic pain; K21.9 Gastro-esophageal reflux disease without esophagitis; M19.90 Unspecified osteoarthritis, unspecified site
CPT/HCPCS: 36415; 71045; 80048; 80076; 82550; 82947; 83690; 83735; 83880; 84443; 84484; 85007; 85025; 85379; 85610; 85730; 86140; 87040; 87077; 87086; 87186; 87205; 87804; 93005; 94640; 96361; 96365; J0696; J1815; J2543; J3370; J7030; J7040; J7050; J7120; J8540; P9612; U0003; 94664; 99285-25